=== PATIENT | female | born 1985 | race Caucasian/White ===

== ENCOUNTER → 2016-09-25 | Outpatient (CLI) | payer OTHER ==
[~2016-09-25] VITALS: Ht 165.1 cm; Wt 128.1 kg
[~2016-09-25] MED LIST: IBUP-232 PO; INSULIN HUMAN REGULAR 1,000 UNITS/10 ML VIAL SQ PRN; LACTATED RINGER'S 1000 ML INJ 1,000 ML ONE; LACTATED RINGER'S 1000 ML IV SCH; LOSA25TA PO; METOPROLOL TARTRATE 25 MG TAB PO PRN; PROPOFOL 200 MG/20 ML AMP IV ONE; SODIUM CHLORID 0.9% 500 ML IV SCH; VITA500T PO
[2016-09-25 09:13] VITALS: BP 121/81; PULSE 80; RESP 20; TEMP 98; O2SAT 96
--- NOTE | 2016-09-25 10:32 | PD.PROCEDR ---
GI Procedure REFERRING PHYSICIAN Dr. Alberto PROCEDURE PERFORMED EGD with biopsy INDICATION FOR PROCEDURE Preoperative evaluation prior bariatric surgery PROCEDURE: The procedure, risks and benefits were discussed with Ms. Parker and informed consent was obtained. Anesthesia sedated her with Diprivan. She was placed in the left lateral decubitus position. EGD: The Pentax videoscope was introduced through the oropharynx and advanced to the second portion of the duodenum under direct visualization. Retroflexion was performed in the stomach. FINDINGS: The esophagus this appeared to be unremarkable and within normal limits the Z line appeared to be regular The stomach there was patchy erythema in the antrum but no ulcerations or erosions antral biopsies were taken further evaluation the patient was also noted to have a few pedunculated small polyps in the gastric body suggestive of PPI injury biopsies were taken for further evaluation otherwise gastric mucosa was unremarkable The duodenum this was normal ESTIMATED BLOOD LOSS: None SPECIMENS REMOVED: Gastric sample COMPLICATIONS: None IMPRESSION: Gastric polyps Gastritis PLAN: Await biopsies Patient may proceed with bariatric surgery if biopsies are negative Jakob Macdonald MD Sep 25, 2016 10:32
[2016-09-25 10:44] VITALS: BP 121/80; PULSE 81; RESP 16; O2SAT 99
== END ==
LOC: HEND 08:29
PROVIDERS: ATTEND Internal Medicine Gastroenterology
DX: Z01.818 Encounter for other preprocedural examination (principal); K29.50 Unspecified chronic gastritis without bleeding
CPT/HCPCS: 00740; 43239; 88305; 88312; J7120

== ENCOUNTER 2017-01-13 13:58 | Inpatient (IN) | payer OTHER ==
[~2017-01-13] VITALS: Ht 162.6 cm; Wt 122.1 kg
[~2017-01-13 13:58] MED LIST changes: -IBUP-232 PO; -INSULIN HUMAN REGULAR 1,000 UNITS/10 ML VIAL SQ PRN; -LACTATED RINGER'S 1000 ML INJ 1,000 ML ONE; -LACTATED RINGER'S 1000 ML IV SCH; -METOPROLOL TARTRATE 25 MG TAB PO PRN; -PROPOFOL 200 MG/20 ML AMP IV ONE; -SODIUM CHLORID 0.9% 500 ML IV SCH; -VITA500T PO
[2017-02-02] MEDS ORDERED: CHLORHEXIDINE GLUCONATE 2 % 1 PACK (2 CLOTHS) TOPICAL PRN (06:15)
[2017-02-02] MEDS ORDERED: SODIUM CHLORID 0.9% 500 ML IV PRN (06:15)
[2017-02-02] MEDS ORDERED: INSULIN HUMAN REGULAR 1,000 UNITS/10 ML VIAL SQ PRN (06:15)
[2017-02-02] MEDS ORDERED: LACTATED RINGER'S 1000 ML IV PRN (06:15)
[2017-02-02] MEDS ORDERED: METOPROLOL TARTRATE 25 MG TAB PO PRN (06:15)
[2017-02-02] MEDS ORDERED: metroNIDAZOLE 500 MG INJ 100 ML IV SCH (06:15)
[2017-02-02] MEDS ORDERED: APREPITANT 40 MG CAP PO SCH (06:15)
[2017-02-02] MEDS ORDERED: POVIDONE IODINE 5% (ANTISEPSIS KIT) 4 APPLICATIONS EACH NARE PRN (06:15)
[2017-02-02] MEDS ORDERED: ACETAMINOPHEN 1000 MG/100 ML VIAL IV SCH (06:15)
[2017-02-02] MEDS ORDERED: ceFAZolin 2 GM PREMIX 50 ML IV SCH (06:15)
[2017-02-02] MEDS ORDERED: SCOPOLAMINE 1.5 MG PATCH T-DERMAL SCH (06:15)
[2017-02-02 06:19] VITALS: BP 136/79; PULSE 97; RESP 16; TEMP 98.7; O2SAT 99
[2017-02-02] MEDS: ONDANSETRON HCL 4 MG/2 ML VIAL IV PUSH SCH ×2 (06:30→10:50)
[2017-02-02] MEDS ORDERED: MIDAZOLAM HCL 2 MG/2 ML VIAL ONE (06:57)
[2017-02-02] MEDS ORDERED: FAMOTIDINE 20 MG/2 ML VIAL ONE (06:57)
[2017-02-02] MEDS ORDERED: ACETAMINOPHEN 1000 MG/100 ML VIAL IV ONE (06:57)
[2017-02-02] MEDS ORDERED: fentaNYL CITRATE 250 MCG/5 ML AMP ONE (06:57)
[2017-02-02] MEDS ORDERED: METHYLENE BLUE 100 MG/10 ML VIAL OTHER ONE (07:54)
[2017-02-02] MEDS ORDERED: BUPIVACAINE/EPINEPHRINE 0.25% PF 30 ML VIAL INFIL ONE (07:54)
[2017-02-02] MEDS ORDERED: ENALAPRILAT 1.25 MG/ML VIAL IV PUSH PRN (08:45)
[2017-02-02] MEDS ORDERED: diphenhydrAMINE HCL ELIXIR 12.5 MG/5 ML CUP PO PRN (08:45)
[2017-02-02] MEDS ORDERED: HYDROmorphone HCL PF 1 MG/ML VIAL IV PUSH PRN (08:45)
[2017-02-02] MEDS ORDERED: SODIUM CHLORIDE 0.9% FLUSH 10 ML FLUSH IV FLUSH PRN (08:45)
[2017-02-02] MEDS ORDERED: diphenhydrAMINE HCL 50 MG/ML VIAL IV PRN (08:45)
[2017-02-02] MEDS ORDERED: Post-op Orders (for Pharmacy) MISC OTHER ONE (08:45)
[2017-02-02] MEDS: SODIUM CHLORIDE 0.9% FLUSH 10 ML FLUSH IV FLUSH SCH ×2 (09:00→21:00)
[2017-02-02] MEDS ORDERED: *morphine SULFATE 8 MG/ML PERIprocedure ONLY ONE ×2 (09:21→09:41)
[2017-02-02] MEDS ORDERED: PHENYLEPH/NS 1000 MCG/10 ML SYR IV ONE (09:42)
[2017-02-02] MEDS ORDERED: NEOSTIGMINE 3 MG/3 ML SYR IV ONE (09:42)
[2017-02-02] MEDS ORDERED: PROPOFOL 200 MG/20 ML AMP IV ONE (09:42)
[2017-02-02] MEDS ORDERED: ONDANSETRON HCL 4 MG/2 ML VIAL IV PUSH ONE (09:43)
[2017-02-02] MEDS ORDERED: LACTATED RINGER'S 1000 ML INJ 1,000 ML IV ONE (09:43)
[2017-02-02] MEDS: D5-1/2 NS + KCL 20 MEQ INJ 1,000 ML IV SCH ×2 (09:45→17:30)
[2017-02-02] MEDS: METOCLOPRAMIDE HCL 10 MG/2 ML VIAL IV PUSH SCH ×3 (10:00→21:06)
[2017-02-02] MEDS: ACETAMINOPHEN 325MG/HYDROcodone 7.5MG/15ML UDC PO PRN ×3 (10:50→23:11)
[2017-02-02] MEDS: ONDANSETRON HCL 4 MG/2 ML VIAL IV PRN (10:53)
--- NOTE | 2017-02-02 10:57 | MP ---
cc: SHABBIR GILLIS DATE OF SURGERY: 02/02/2017 DATE OF : 1985 PREOPERATIVE DIAGNOSIS Morbid obesity with BMI of 47, complicated by obstructive sleep apnea, essential hypertension. POSTOPERATIVE DIAGNOSIS Morbid obesity with BMI of 47, complicated by obstructive sleep apnea, essential hypertension. PROCEDURE Laparoscopic vertical sleeve gastrectomy over a 36-Turkmen viSiGi bougie. SURGEON Shabbir Gillis MD [employer] Jorge May MD ANESTHESIA General endotracheal anesthesia. ESTIMATED BLOOD LOSS Scant. COMPLICATIONS None. PROCEDURE IN DETAIL The patient was brought to the operating room and placed on the operating table in supine position, bilateral sequential inflation device placed on lower extremities. General anesthesia was instituted. Antibiotics was initiated. The abdomen was prepped and draped sterilely. A point 15 cm distal to the xiphoid in the midline was anesthetized with 0.25% Marcaine with epinephrine. A skin incision was made, 5-mm OptiView port placed under direct vision and pneumoperitoneum created. Under direct vision, three 5-mm left upper quadrant, a 15-mm right upper quadrant, 5-mm right upper quadrant ports placed. Prior to placement of all ports the skin and peritoneum were anesthetized with 0.25% Marcaine with epinephrine. The patient was placed in reverse Trendelenburg position left side up, the Mady-Flex retractor was placed. The left lobe of the liver was retracted. The vasculature along the greater curvature of the stomach was using harmonic scalpel starting a distance 5-cm proximal to the pylorus and carried towards the angle of His. The angle of His was taken down bluntly. Posterior ligamentous attachments were sharply . A 36-Turkmen ViSiGi bougie was placed at the start of the case, was placed on suction. Division of the stomach started 5 cm proximal to the pylorus and carried towards the angle of His to completely excise approximately 80% of the stomach. This was performed using an [place] Flex stapler at the pylorus. The first firing was with a black load, followed by a green load and four gold loads. All staple loads were reinforced with SeamGuard. A distance of 2 cm was left from the angle incisura and the staple line and a distance of 1 cm left from the GE junction and the staple line. The pylorus was then occluded, methylene blue tinged saline was instilled. There was no evidence of extravasation. The gastrocolic ligament was then sutured to the posterior leaflet of the SeamGuard using a 2-0 Vicryl suture in a running manner. Bleeding points were controlled with Evicel. The excised stomach was removed from the peritoneal cavity through the 15-mm port site in an Endopouch. The fascia at the 15-mm port site was approximated with 0 Vicryl suture. The CO2 was then released, all ports were removed, all skin incisions closed with 4-0 Monocryl. The abdominal wall was cleaned. A sterile dressing was placed. The patient was awakened and taken to the recovery room. MD VALDO Taveras/ABIMAEL /9:11 AM /10:49 AM
[2017-02-02] MEDS: ENOXAPARIN SODIUM 40 MG/0.4 ML SYRINGE SQ SCH (11:35)
[2017-02-02] MEDS: PANTOPRAZOLE SOD 40 MG DELAYED RELEASE TAB PO SCH (11:36)
[2017-02-02 12:00] VITALS: BP 128/67; PULSE 79; RESP 17; TEMP 95.3; O2SAT 95
[2017-02-02 16:00] VITALS: BP 120/81; PULSE 102; RESP 18; TEMP 95.6; O2SAT 94
[2017-02-02] MEDS: metroNIDAZOLE 500 MG INJ 100 ML IV SCH ×2 (16:16→23:11)
[2017-02-02] MEDS: RESP: ALBUTEROL 2.5 MG/3 ML NEB (SCH) INH ×2 (16:52→20:41)
[2017-02-02 16:56] VITALS: O2SAT 97
[2017-02-02 20:00] VITALS: BP 137/81; PULSE 94; RESP 21; TEMP 97.2; O2SAT 95
[2017-02-02 20:45] VITALS: O2SAT 98
[2017-02-03] VITALS: BP 126/70; PULSE 80; RESP 21; TEMP 97.3; O2SAT 93
[2017-02-03] MEDS: RESP: ALBUTEROL 2.5 MG/3 ML NEB (SCH) INH ×4 (01:20→12:07)
[2017-02-03 01:22] VITALS: O2SAT 94
[2017-02-03 03:16] VITALS: O2SAT 96
[2017-02-03] MEDS: METOCLOPRAMIDE HCL 10 MG/2 ML VIAL IV PUSH SCH (05:31)
[2017-02-03] MEDS: D5-1/2 NS + KCL 20 MEQ INJ 1,000 ML IV SCH ×2 (05:32→08:38)
[2017-02-03] MEDS: ACETAMINOPHEN 325MG/HYDROcodone 7.5MG/15ML UDC PO PRN ×2 (05:32→11:20)
[2017-02-03 05:36] LABS: AUTOMATED NEUTROPHIL # 8.5 TH/MM3 (1.8-7.7); BASOPHIL % 0.1 % (0.0-2.0); HEMATOCRIT 36.4 % (35.0-46.0); HEMO FLAGS DIFF FINAL; LYMPH % 10.4 % (9.0-44.0); LYMPHOCYTE # 1.1 TH/MM3 (1.0-4.8); MEAN CELL VOLUME 82.8 FL (80.0-100.0); MEAN CORPUSCULAR HEMOGLOBIN 28.3 PG (27.0-34.0); MEAN CORPUSCULAR HGB CONC 34.1 % (32.0-36.0); MONO % 5.9 % (0.0-8.0); NEUT % 83.6 % (16.0-70.0); PLATELET COUNT 343 TH/MM3 (150-450); RED BLOOD COUNT 4.39 MIL/MM3 (4.00-5.30); RED CELL DISTRIBUTION WIDTH 14.6 % (11.6-17.2); WHITE BLOOD COUNT 10.2 TH/MM3 (4.0-11.0)
[2017-02-03 05:42] LABS: BICARBONATE 21.6 MEQ/L (21.0-32.0); MAGNESIUM 1.7 MG/DL (1.5-2.5); POTASSIUM 3.3 MEQ/L (3.5-5.1)
[2017-02-03 08:00] VITALS: BP 121/69; PULSE 76; RESP 16; TEMP 96.5; O2SAT 95
[2017-02-03] MEDS: metroNIDAZOLE 500 MG INJ 100 ML IV SCH (08:37)
[2017-02-03] MEDS: PANTOPRAZOLE SOD 40 MG DELAYED RELEASE TAB PO SCH (08:37)
[2017-02-03] MEDS: SODIUM CHLORIDE 0.9% FLUSH 10 ML FLUSH IV FLUSH SCH (08:38)
[2017-02-03] MEDS: POTASSIUM CHLOR 20 MEQ PREMIX 100 ML IV SCH ×3 (08:39→12:42)
[2017-02-03] MEDS ORDERED: METOCLOPRAMIDE HCL 10 MG/2 ML VIAL IV PUSH PRN (08:45)
--- NOTE | 2017-02-03 09:07 | HHI.PR ---
Subjective Subjective Notes 32yo female POD#1 VSG. Sitting up in bed in no acute distress. Complains of burning pain with fluids. No nausea, no vomiting. Pain controlled with oral medications Objective Vitals/I&O Vital Signs Date Time Temp Pulse Resp B/P Pulse Ox O2 Delivery O2 Flow Rate FiO2 02/03/17 08:00 96.5 76 16 121/69 95 02/03/17 03:16 21 02/02/17 10:05 Nasal Cannula 2 Labs Laboratory Tests Test 02/03/17 04:32 White Blood Count 10.2 Red Blood Count 4.39 Hemoglobin 12.4 Hematocrit 36.4 Mean Corpuscular Volume 82.8 Mean Corpuscular Hemoglobin 28.3 Mean Corpuscular Hemoglobin 34.1 Concent Red Cell Distribution Width 14.6 Platelet Count 343 Mean Platelet Volume 8.4 Neutrophils (%) (Auto) 83.6 Lymphocytes (%) (Auto) 10.4 Monocytes (%) (Auto) 5.9 Eosinophils (%) (Auto) 0.0 Basophils (%) (Auto) 0.1 Neutrophils # (Auto) 8.5 Lymphocytes # (Auto) 1.1 Monocytes # (Auto) 0.6 Eosinophils # (Auto) 0.0 Basophils # (Auto) 0.0 CBC Comment DIFF FINAL Differential Comment Sodium Level 137 Potassium Level 3.3 Chloride Level 106 Carbon Dioxide Level 21.6 Anion Gap 9 Blood Urea Nitrogen 4 Creatinine 0.61 Estimat Glomerular Filtration 112 Rate Random Glucose 168 Calcium Level 8.5 Magnesium Level 1.7 Cardiovascular: Regular Lungs: Clear Abdomen: Post-op tenderness Extremities: Perfused Wound Wound : Wound Location: Abdomen Appearance: Clean & Dry A/P Assessment and Plan Replace serum K+ with 40 MEQ KCL IV Carafate ACHS for pain Continue to increase PO fluids as tolerated Continue with frequent ambulation Discharge Planning D/C home later today Barb Gunderson Feb 03, 2017 09:07
[2017-02-03 09:08] VITALS: O2SAT 96
[2017-02-03] MEDS: SUCRALFATE 1 GM/10 ML CUP PO SCH ×2 (09:50→11:00)
[2017-02-03] MEDS ORDERED: SUCR1S PO (09:57)
[2017-02-03] MEDS: ONDANSETRON HCL 4 MG/2 ML VIAL IV PRN (11:20)
[2017-02-03 12:00] VITALS: BP 137/87; PULSE 70; RESP 18; TEMP 96.1; O2SAT 96
[2017-02-03] MEDS: ENOXAPARIN SODIUM 40 MG/0.4 ML SYRINGE SQ SCH (12:42)
== END 2017-02-03 15:40 | disposition home or self-care (01) | DRG 621 ==
LOC: HSDI 02-02 05:32 → N07A 02-02 10:27
PROVIDERS: ADMIT Surgery; ATTEND Surgery
PROC: 0DB64Z3 Excision of Stomach, Percutaneous Endoscopic Approach, Vertical (ICD-10-PCS; principal; 2017-02-02 07:18)
DX: E66.01 Morbid (severe) obesity due to excess calories (principal); I10 Essential (primary) hypertension; Z68.42 Body mass index [BMI] 45.0-49.9, adult; G47.33 Obstructive sleep apnea (adult) (pediatric)
CPT/HCPCS: 80048; 83735; 85025; 94150; 94640; 94664; J0131; J0690; J1650; J2250; J2270; J2370; J2405; J2710; J2765; J3010; J3480; J7120; J7613; J8501